=== PATIENT | female | born 1940 | race Caucasian/White ===

== ENCOUNTER 2020-12-03 17:47 | Inpatient (IN) | payer OTHER ==
--- NOTE | 2020-12-03 18:30 | RAD REPORT ---
EXAM DESCRIPTION: RAD - Chest Single View - 12/03/2020 6:24 pm CLINICAL HISTORY: CONGESTION COMPARISON: Chest Single View dated 07/27/2016 FINDINGS: Lines: None. Lungs: New poorly defined peripheral opacities in the peripheral aspect of the right lung. The left l aaron is clear. Pleural: No significant pleural effusions or pneumothorax. Cardiac: The heart size is within normal limits. Bones: No acute fractures. Other: IMPRESSION: New peripheral ill-defined opacities in the right lung could reflect pneumonia. The left lung is clear. Suggest radiographic follow-up to ensure resolution.
[2020-12-03 18:38] LABS: Absolute Lymphocytes (CBC) 2.6 K/uL (0.7-4.9); Basophils % 0.9 % (0-1.3); Hematocrit 41.6 % (36.0-45.0); Lymphocytes % 23.8 % (15.3-44.8); MPV 7.6 fL (7.6-11.3); RBC Red Blood Cell Count 4.76 M/uL (3.86-4.86)
[2020-12-03 18:40] LABS: Protime INR 1.39
[2020-12-03] MEDS ORDERED: NA CHLORIDE 0.9% 1,000 ML ONE (18:44)
[2020-12-03] MEDS ORDERED: METHYLPREDNISOLONE 125 MG INJ ONE (18:44)
[2020-12-03 19:02] LABS: ALT/SGPT 50 U/L (12-78); AST/SGOT 20 U/L (15-37); Albumin 3.4 g/dL (3.4-5.0); Alkaline Phosphatase 90 U/L (45-117); BUN Blood Urea Nitrogen 19 mg/dL (7-18); Bicarbonate 25 mmol/L (21-32); Bilirubin Direct 0.2 mg/dL (0-0.2); Bilirubin Total 0.7 mg/dL (0.2-1.0); Glucose Level 169 mg/dL (74-106); Magnesium 2.6 mg/dL (1.8-2.4); NT PRO-BNP 240 pg/mL (<450); Potassium 3.8 mmol/L (3.5-5.1); Protein, Total 7.8 g/dL (6.4-8.2); Sodium Level 141 mmol/L (136-145); Troponin (Emerg Dept Use Only) < 0.02 ng/mL (0.0-0.045)
[2020-12-03] MEDS ORDERED: Levofloxacin 750mg IV 750 MG/150 ML BAG IV ONE (19:10)
--- NOTE | 2020-12-03 20:07 | EDPHYS ---
Physician Documentation [facility] Name: Cricket Rodriguez Age: 80 yrs Sex: Female : 1940 Arrival Date: 12/03/2020 Time: 17:48 Bed 2 Private MD: Kitty Emanuel C; Trip Arreola S ED Physician Leonel Joel HPI: 12/03 18:14 This 80 yrs old Female presents to ER via Wheelchair with complaints of afib, ma2 covid+. 18:14 The patient presents with a history of irregular heart beat. Onset: The ma2 symptoms/episode began/occurred gradually, 3 day(s) ago. Associated signs and symptoms: Pertinent negatives: fever, nausea, syncope, unusual stressors. Severity of symptoms: At their worst the symptoms were moderate in the emergency department the symptoms are unchanged. The patient has experienced similar episodes in the past. Patient has hypothyroidism, A. fib, and has been having Covid for the last 3 weeks, she has been having diarrhea, vomiting, been dehydrated, although her respiratory symptoms and cough and fever has resolved. Patient has been having palpitation and heart racing for 3 days, she has been feeling generalized weakness and dehydrated. No chest pain, no lower extremity swelling. She took her aspirin Xarelto and atenolol today.. Historical: - Allergies: 17:56 Codeine; tw2 - Home Meds: 17:56 Xarelto Oral [Active]; Tramadol Oral [Active]; levothyroxine oral [Active]; Atenolol tw2 Oral [Active]; - PMHx: 17:56 Atrial Fib; Hypothyroidism; neuropathy; tw2 - Immunization history:: Client reports having NOT received the Covid vaccine. - Social history:: Smoking status: Patient denies any tobacco usage or history of. - Family history:: not pertinent. ROS: 18:14 Constitutional: Negative for fever, chills, and weight loss. ma2 18:14 All other systems are negative. Exam: 18:14 Constitutional: This is a well developed, well nourished patient who is awake, alert, ma2 and in no acute distress. Head/Face: Normocephalic, atraumatic. Eyes: Pupils equal round and reactive to light, extra-ocular motions intact. Lids and lashes normal. Conjunctiva and sclera are non-icteric and not injected. Cornea within normal limits. Periorbital areas with no swelling, redness, or edema. ENT: Nares patent. No nasal discharge, no septal abnormalities noted. Tympanic membranes are normal and external auditory canals are clear. Oropharynx with no redness, swelling, or masses, exudates, or evidence of obstruction, uvula midline. Mucous membranes moist. Neck: Trachea midline, no thyromegaly or masses palpated, and no cervical lymphadenopathy. Supple, full range of motion without nuchal rigidity, or vertebral point tenderness. No Meningismus. Chest/axilla: Normal chest wall appearance and motion. Nontender with no deformity. No lesions are appreciated. Cardiovascular: Tachycardia, rate is 110, beats per minute, blood pressure is on the lower normal side. Rhythm is irregularly irregular with a normal S1 and S2. No gallops, murmurs, or rubs. Normal PMI, no JVD. No pulse deficits. Respiratory: Lungs have equal breath sounds bilaterally, clear to auscultation and percussion. No rales, rhonchi or wheezes noted. No increased work of breathing, no retractions or nasal flaring. Abdomen/GI: Soft, non-tender, with normal bowel sounds. No distension or tympany. No guarding or rebound. No evidence of tenderness throughout. Skin: Warm, dry with normal turgor. Normal color with no rashes, no lesions, and no evidence of cellulitis. MS/ Extremity: Pulses equal, no cyanosis. Neurovascular intact. Full, normal range of motion. Neuro: Awake and alert, GCS 15, oriented to person, place, time, and situation. Cranial nerves II-XII grossly intact. Motor strength 5/5 in all extremities. Sensory grossly intact. Cerebellar exam normal. Normal gait. 20:46 ECG was reviewed by the Attending Physician. pallavi 20:47 ECG was reviewed by the Attending Physician. [facility] Vital Signs: 17:53 BP 108 / 80; Pulse 104; Resp 17; Temp 97.9(TE); Pulse Ox 97% on R/A; Weight 51.71 kg tw2 (R); Height 5 ft. 2 in. (157.48 cm); Pain 0/10; 18:42 BP 109 / 62; Pulse 131; Resp 22; Pulse Ox 99% on R/A; oh 17:53 Body Mass Index 20.85 (51.71 kg, 157.48 cm) tw2 NIH Stroke Scale Scores: 18:37 NIHSS Score: 0 oh MDM: 18:05 Patient medically screened. [facility] 18:14 Differential diagnosis: arrythmia, dehydration, stress disorder, Patient has A. fib ma2 with RVR, rate is about 110, patient is dehydrated clinically and has not been drinking water over the last few days. We will give her fluid, symptoms been going on for 3 days, no urgency for rate control at this time since her rate is 110 anyway, will get cardiac work-up continue to monitor. 18:53 Data reviewed: vital signs, nurses notes. ED course: Patient has a pneumonia on chest ak2 x-ray, I ordered Levaquin, she is pending cardiac work-up, heart rate is 130, however since this been going on for few days we will hydrate first before doing any rate control.. 19:22 Patient medically screened. [facility] 12/03 18:13 Order name: Basic Metabolic Panel; Complete Time: 20:04 [facility] 12/03 18:13 Order name: CBC with Diff; Complete Time: 18:38 [facility] 12/03 18:13 Order name: LFT's; Complete Time: 20:04 [facility] 12/03 18:13 Order name: Magnesium; Complete Time: 20:04 [facility] 12/03 18:13 Order name: NT PRO-BNP; Complete Time: 20:04 [facility] 12/03 18:13 Order name: PT-INR; Complete Time: 18:50 [facility] 12/03 18:13 Order name: Troponin (emerg Dept Use Only); Complete Time: 20:04 [facility] 12/03 18:14 Order name: T4,Total; Complete Time: 20:04 [facility] 12/03 18:14 Order name: TSH; Complete Time: 20:04 [facility] 12/03 19:46 Order name: T4 Free; Complete Time: 20:04 [facility] 12/03 20:09 Order name: Urine Dipstick-Ancillary; Complete Time: 20:19 [facility] 12/03 20:15 Order name: COVID-19 : Document "Date of Symptom Onset" if Symptomatic. em 12/03 20:15 Order name: CORONAVIRUS [facility] 12/04 00:27 Order name: SARS-COV-2 RT PCR [facility] 12/03 18:13 Order name: XRAY Chest (1 view); Complete Time: 18:38 [facility] 12/03 18:13 Order name: EKG; Complete Time: 18:14 [facility] 12/03 18:13 Order name: Cardiac monitoring; Complete Time: 18:31 [facility] 12/03 18:13 Order name: EKG - Nurse/Tech; Complete Time: 18:31 [facility] 12/03 18:13 Order name: IV Saline Lock; Complete Time: 18:31 [facility] 12/03 18:13 Order name: Labs collected and sent; Complete Time: 18:31 [facility] 12/03 18:13 Order name: O2 Per Protocol; Complete Time: 18:31 [facility] 12/03 20:12 Order name: CONS Physician Consult [facility] 12/03 20:39 Order name: EKG; Complete Time: 20:39 [facility] 12/03 18:13 Order name: O2 Sat Monitoring; Complete Time: 18:31 [facility] 12/03 18:13 Order name: Urine Dipstick-Ancillary (obtain specimen); Complete Time: 20:09 [facility] 12/03 20:39 Order name: EKG - Nurse/Tech; Complete Time: 21:22 pallavi EC:46 Rate is 139 beats/min. Rhythm is irregularly irregular. QRS [place] is Normal. NV interval pallavi is normal. QRS interval is normal. QT interval is normal. No Q waves. T waves are Normal. No ST changes noted. Clinical impression: Atrial Fibrillation. Interpreted by me. Reviewed by me. 20:47 Rate is 112 beats/min. Rhythm is irregularly irregular. QRS [place] is Normal. NV interval pallavi is normal. QRS interval is normal. QT interval is normal. No Q waves. T waves are Normal. No ST changes noted. Clinical impression: Atrial Fibrillation and No evidence of ischemia. Interpreted by me. Reviewed by me. Administered Medications: 18:31 Drug: NS 0.9% 1000 ml Route: IV; Rate: 1 bolus; Site: left antecubital; ld1 18:31 Drug: SOLU-Medrol (methylPrednisoLONE) 125 mg Route: IVP; Site: left antecubital; ld1 18:53 Drug: LevaQUIN (levofloxacin) 750 mg Volume: 150 ml; Route: IVPB; Infused Over: 90 oh mins; Site: left antecubital; 20:43 Drug: Lopressor (metoprolol TARTRATE)) 25 mg Route: PO; cw2 20:43 Drug: Lopressor (metoprolol) 2.5 mg Route: IVP; Site: right antecubital; cw2 20:44 Drug: Lopressor (metoprolol) 2.5 mg Route: IVP; Site: right antecubital; cw2 20:45 Drug: Lopressor (metoprolol) 2.5 mg Route: IVP; Site: right antecubital; cw2 Disposition Summary: 12/03/20 20:07 Hospitalization Ordered Hospitalization Status: Inpatient Admission pallavi Provider: Kitty Emanuel cha Location: Telemetry/MedSurg (Inpatient) pallavi Condition: Fair pallavi Problem: new pallavi Symptoms: have improved pallavi Bed/Room Type: Standard pallavi Room Assignment: 412(12/04/20 00:30) tl1 Diagnosis - Other pneumonia, unspecified organism - right peripherial pallavi - Fever, unspecified pallavi - Paroxysmal atrial fibrillation pallavi - Dehydration pallavi - UTI/ Urinary tract infection, site not specified pallavi Forms: - Medication Reconciliation Form pallavi - SBAR form pallavi NIH Stroke Scale - NIH Stroke Score Date: 12/03/2020 Time: 18:37 Total Score = 0 1a. Level of Consciousness (LOC) - 0(Alert) 1b. Level of Consciousness (LOC) (Month \\T\\ Age) - 0(Both) 1c. LOC Commands (Open \\T\\ Closes Eyes/Education Paraprofessional) - 0(Both) 2. Best Gaze (Lateral Gaze Paresis) - 0(Normal) 3. Visual Field Loss - 0(No visual loss) 4. Facial Palsy - 0(Normal) 5a. Left Arm: Motor (10-second hold) - 0(No drift) 5b. Right Arm: Motor (10-second hold) - 0(No drift) 6a. Left Leg: Motor (5-second hold - always test supine) - 0(No drift) 6b. Right Leg: Motor (5-second hold - always test supine) - 0(No drift) 7. Limb Ataxia (finger/nose \\T\\ heel/dugan - test with eyes open) - 0(Absent) 8. Sensory Loss (pinprick arms/legs/face) - 0(Normal) 9. Best Language: Aphasia (description/naming/reading) - 0(No aphasia) 10. Dysarthria (speech clarity - read or repeat words) - 0(Normal) 11. Extinction and Inattention (visual/tactile/auditory/spatial/personal) - 0(No abnormality) Initials: oh Signatures: Dispatcher [employer] Leonel Doe MD MD cha Lasagna, Tonya RN RN tl1 Ann Marie Roman RN RN tw2 Erik Arellano MD MD ma2 Tasha Bruce RN RN ld1 Avery Orozco RN RN 2 Monty Fuller RN RN oh Corrections: (The following items were deleted from the chart) 12/04 00:30 12/03 20:07 pallavi teran
--- NOTE | 2020-12-03 20:07 | ER ---
Nurse's Notes [facility] Name: Cricket Rodriguez Age: 80 yrs Sex: Female : 1940 Arrival Date: 12/03/2020 Time: 17:48 Bed 2 Private MD: Kitty Emanuel C; Trip Arreola S Diagnosis: Other pneumonia, unspecified organism-right peripherial;Fever, unspecified;Paroxysmal atrial fibrillation;Dehydration;UTI/ Urinary tract infection, site not specified Presentation: 12/03 17:53 Chief complaint: Patient states: my heart is racing up a storm. it started a couple of tw2 hours ago. and i tried to lay still. i took my medicine. Coronavirus screen: Client presents with at least one sign or symptom that may indicate coronavirus-19. Standard/surgical mask placed on the client. Provider contacted for isolation considerations. Client reports previous positive COVID test result. 1 week ago tested positive, originally tested positive 1 month ago. Ebola Screen: Patient denies travel to an Ebola-affected area in the 21 days before illness onset. Initial Sepsis Screen: Does the patient meet any 2 criteria? HR > 90 bpm. Does the patient have a suspected source of infection? No. Patient's initial sepsis screen is negative. Risk Assessment: Do you want to hurt yourself or someone else? Patient reports no desire to harm self or others. Onset of symptoms was December 03, 2020. 17:53 Method Of Arrival: Wheelchair tw2 17:53 Acuity: TYLER 2 tw2 Triage Assessment: 17:57 General: Appears in no apparent distress. slender, well groomed, Behavior is tw2 cooperative, anxious. Pain: Denies pain. Historical: - Allergies: 17:56 Codeine; tw2 - Home Meds: 17:56 Xarelto Oral [Active]; Tramadol Oral [Active]; levothyroxine oral [Active]; Atenolol tw2 Oral [Active]; - PMHx: 17:56 Atrial Fib; Hypothyroidism; neuropathy; tw2 - Immunization history:: Client reports having NOT received the Covid vaccine. - Social history:: Smoking status: Patient denies any tobacco usage or history of. - Family history:: not pertinent. Screenin:37 Abuse screen: Denies threats or abuse. Nutritional screening: No deficits noted. oh Tuberculosis screening: No symptoms or risk factors identified. Fall Risk None identified. Assessment: 18:34 General: Appears in no apparent distress. Behavior is calm, cooperative, appropriate oh for age, Reports palpitation. Pain: Denies pain. Neuro: No deficits noted. Cardiovascular: Reports palpitations, Rhythm is atrial fibrillation. Respiratory: No deficits noted. GI: No deficits noted. : No deficits noted. EENT: No deficits noted. Derm: No deficits noted. Musculoskeletal: No deficits noted. Vital Signs: 17:53 BP 108 / 80; Pulse 104; Resp 17; Temp 97.9(TE); Pulse Ox 97% on R/A; Weight 51.71 kg tw2 (R); Height 5 ft. 2 in. (157.48 cm); Pain 0/10; 18:42 BP 109 / 62; Pulse 131; Resp 22; Pulse Ox 99% on R/A; oh 17:53 Body Mass Index 20.85 (51.71 kg, 157.48 cm) tw2 NIH Stroke Scale Scores: 18:37 NIHSS Score: 0 oh ED Course: 17:48 Patient arrived in ED. as 17:48 Trip Arreola MD is Private Physician. as 17:48 Kitty Emanuel MD is Private Physician. as 17:56 Triage completed. tw2 17:56 Arm band placed on. tw2 18:02 EKG completed in triage. Results shown to MD. tw2 18:05 Erik Arellano MD is Attending Physician. ma2 18:11 Placed in gown. Bed in low position. school lunch monitor on. Pulse ox on. NIBP on. provider tw2 at bedside at this time. Notified VITALY Horta. 18:24 XRAY Chest (1 view) In Process Unspecified. EDMS 18:31 Inserted saline lock: 20 gauge in left antecubital area, using aseptic technique. Blood ld1 collected. 18:34 Monty Fuller RN is Primary Nurse. oh 19:13 Attending Physician role handed off by Erik Arellano MD pallavi 19:13 Leonel Joel MD is Attending Physician. pallavi 20:05 Kitty Emanuel MD is Hospitalizing Provider. pallavi Administered Medications: 18:31 Drug: NS 0.9% 1000 ml Route: IV; Rate: 1 bolus; Site: left antecubital; ld1 18:31 Drug: SOLU-Medrol (methylPrednisoLONE) 125 mg Route: IVP; Site: left antecubital; ld1 18:53 Drug: LevaQUIN (levofloxacin) 750 mg Volume: 150 ml; Route: IVPB; Infused Over: 90 oh mins; Site: left antecubital; 20:43 Drug: Lopressor (metoprolol TARTRATE)) 25 mg Route: PO; cw2 20:43 Drug: Lopressor (metoprolol) 2.5 mg Route: IVP; Site: right antecubital; cw2 20:44 Drug: Lopressor (metoprolol) 2.5 mg Route: IVP; Site: right antecubital; cw2 20:45 Drug: Lopressor (metoprolol) 2.5 mg Route: IVP; Site: right antecubital; cw2 Outcome: 20:07 Decision to Hospitalize by Provider. [facility] 12/04 01:11 Patient left the ED. ch4 NIH Stroke Scale - NIH Stroke Score Date: 12/03/2020 Time: 18:37 Total Score = 0 1a. Level of Consciousness (LOC) - 0(Alert) 1b. Level of Consciousness (LOC) (Month \T\ Age) - 0(Both) 1c. LOC Commands (Open \T\ Closes Eyes/Copy Editor) - 0(Both) 2. Best Gaze (Lateral Gaze Paresis) - 0(Normal) 3. Visual Field Loss - 0(No visual loss) 4. Facial Palsy - 0(Normal) 5a. Left Arm: Motor (10-second hold) - 0(No drift) 5b. Right Arm: Motor (10-second hold) - 0(No drift) 6a. Left Leg: Motor (5-second hold - always test supine) - 0(No drift) 6b. Right Leg: Motor (5-second hold - always test supine) - 0(No drift) 7. Limb Ataxia (finger/nose \T\ heel/dugan - test with eyes open) - 0(Absent) 8. Sensory Loss (pinprick arms/legs/face) - 0(Normal) 9. Best Language: Aphasia (description/naming/reading) - 0(No aphasia) 10. Dysarthria (speech clarity - read or repeat words) - 0(Normal) 11. Extinction and Inattention (visual/tactile/auditory/spatial/personal) - 0(No abnormality) Initials: oh Signatures: Dispatcher [employer] Leonel Doe MD MD cha Martinez, Amelia as Wise, Tara RN RN tw2 Erik Arellano MD MD ma2 Tasha Bruce RN RN ld1 Alem Lange RN RN ch4 Avery Orozco RN RN cw2 Monty Fuller RN RN oh
[2020-12-03 20:09] LABS: Urine Blood Trace-intact (Negative); Urine Glucose Negative (Negative); Urine Protein 1+ (Negative); Urine Specific Gravity 1.025 (1.005-1.030)
[2020-12-03] MEDS ORDERED: METOPROLOL TARTRATE 5 MG/5 ML INJ IV ONE ×2 (20:42→21:12)
[2020-12-03] MEDS ORDERED: METOPROLOL TAR 25 MG TAB ONE (20:42)
[2020-12-03] MEDS: Levofloxacin500mg IV 500 MG/100 ML BAG IV SCH (21:00)
[2020-12-03] MEDS: METOPROLOL TAR 50 MG TAB PO SCH (21:14)
[2020-12-03] MEDS ORDERED: ACETAMINOPHEN 325 MG TABLET PO PRN (21:14)
[2020-12-03] MEDS: FAMOTIDINE 20 MG/2 ML VIAL IV SCH (21:14)
[2020-12-03] MEDS ORDERED: ONDANSETRON 4 MG/2 ML VIAL IV PRN (21:14)
[2020-12-03] MEDS ORDERED: ALBUTEROL 2.5 MG/3 ML NEB SOL NEB PRN (21:14)
[2020-12-03] MEDS ORDERED: IPRATROPIUM BROM 0.5MG/2.5ML NEB PRN (21:14)
[2020-12-03 21:27] VITALS: BMI 20.8
[2020-12-03] MEDS ORDERED: FAMOTIDINE 20 MG/2 ML VIAL IV ONE (23:07)
[2020-12-04 03:58] LABS: Absolute Lymphocytes (CBC) 0.9 K/uL (0.7-4.9); Basophils % 0.4 % (0-1.3); Lymphocytes % 16.1 % (15.3-44.8); RBC Red Blood Cell Count 4.29 M/uL (3.86-4.86)
[2020-12-04 04:08] LABS: BUN Blood Urea Nitrogen 14 mg/dL (7-18); Bicarbonate 22 mmol/L (21-32); Glucose Level 224 mg/dL (74-106); NT PRO-BNP 1534 pg/mL (<450); Potassium 4.5 mmol/L (3.5-5.1); Sodium Level 143 mmol/L (136-145)
[2020-12-04] MEDS ORDERED: GLUCAGON 1 MG/VIAL IM PRN (06:22)
[2020-12-04] MEDS ORDERED: D50W 25 GM/50 ML SYRINGE IV PRN (06:22)
[2020-12-04] MEDS: INSULIN -REGULAR HUMAN 50 UNIT/0.5 ML ML SQ SCH ×3 (07:30→21:00)
[2020-12-04] MEDS: METOPROLOL TAR 50 MG TAB PO SCH (07:59)
[2020-12-04] MEDS: FAMOTIDINE 20 MG/2 ML VIAL IV SCH ×2 (08:00→20:19)
[2020-12-04] MEDS: ESCITALOPRAM 20 MG TAB PO SCH (09:07)
[2020-12-04] MEDS: atenoloL 25 MG TAB PO SCH (09:08)
[2020-12-04] MEDS: LEVOTHYROXINE SOD 0.05 MG TABLET PO SCH (09:08)
[2020-12-04] MEDS: TRAMADOL HCL 50 MG TAB PO PRN ×2 (09:15→20:20)
--- NOTE | 2020-12-04 14:06 | ECHO ---
HEIGHT: 5 ft 2 in WEIGHT: 114 lb 0.017 oz DATE OF STUDY: 12/04/[address]: Vaughn Emanuel MD 2-DIMENSIONAL: YES M.MODE: YES DOPPLER: YES COLOR FLOW: YES TDS: NO PORTABLE: NO DEFINITY: NO BUBBLE STUDY: NO DIAGNOSIS: ATRIAL FIBRILLATION CARDIAC HISTORY: CATHERIZATION: NO SURGERY: NO PROSTHETIC VALVE: NO PACEMAKER: NO MEASUREMENTS (cm) DIASTOLIC (NORMALS) SYSTOLIC (NORMALS) IVSd 1.1 (0.6-1.2) LA Diam 2.7 (1.9-4.0) LVEF 55-60% LVIDd 3.8 (3.5-5.7) LVIDs 2.3 (2.0-3.5) %FS 38% LVPWd 1.1 (0.6-1.2) Ao Diam 2.8 (2.0-3.7) 2 DIMENSIONAL ASSESSMENT: RIGHT ATRIUM: NORMAL LEFT ATRIUM: NORMAL RIGHT VENTRICLE: NORMAL LEFT VENTRICLE: NORMAL TRICUSPID VALVE: MITRAL VALVE: PULMONIC VALVE: AORTIC VALVE: PERICARDIAL EFFUSION: NONE AORTIC ROOT: NORMAL LEFT VENTRICULAR WALL MOTION: NORMAL DOPPLER/COLOR FLOW: SEE BELOW COMMENTS: NORMAL LEFT VENTRICULAR EJECTION FRACTION 55-60% WITH NORMAL WALL MOTION. MILD TRICUSPID, MITRAL, AORTIC AND PULMONARY REGURGITATION. TECHNOLOGIST: Breezy FORREST
[2020-12-04] MEDS ORDERED: RIVAROXABAN 10 MG TABLET PO SCH (17:00)
--- NOTE | 2020-12-04 17:55 | CON ---
Date of Consultation: 12/04/2020 Reason For Consultation: Atrial fibrillation with rapid ventricular response. History Of Present Illness: This is a 80-year-old female, admitted with COVID pneumonia. Only past medical history is atrial fibrillation for which she is on atenolol and anticoagulation with Xarelto. She was doing well and stable on that. She was admitted to the hospital for the pneumonia, started on IV antibiotics, and she had an episode of rapid AFib. Today, she is back in sinus rhythm and no complaints. Past Medical History: AFib. Medications: Refer to reconciliation sheet for detailed list. Allergies: CODEINE. Family History: No premature coronary artery disease or cancer. Social History: She does not smoke or drink. Does not use any drugs. Review of Systems: All systems reviewed and they were negative except as mentioned in the HPI. Physical Examination: Vital Signs: Temperature is 98.2, pulse 73, breathing at 18, blood pressure 126/70, saturating 94% o n room air. General: Pleasant elderly female, in no apparent distress. Head and Neck: Pupils are equal, reactive to light. Intact eye movements. No JVD. No cervical lym phadenopathy. Neck: Supple. Thyroid is not enlarged. Lungs: Clear to auscultation bilaterally. No rhonchi, rales, or crackles. No accessory muscle use. Heart: Regular rate and rhythm. No extra sounds. Abdomen: Soft, nontender. Bowel sounds positive. No organomegaly. No masses or hernia. No rigidi ty or rebound. Extremities: No edema, clubbing, or cyanosis. Intact pulses. Skin: No rash noted. Neurologic: Alert, awake, oriented x3. No acute focal deficits appreciated. Investigations: Troponins have been negative. Creatinine is 0.56. Assessment And Recommendations: Atrial fibrillation with rapid ventricular response. Now, she conve rted in sinus rhythm. Probably, the episode was due to the COVID pneumonia. Continue with atenolol and Xarelto, and I will sign off on this case and I will be happy to follow her up as an outpatient. Thank you for the consult. /PATRIZIA Voice ID: [id number] Report ID: [id number]
[2020-12-04] MEDS: Levofloxacin500mg IV 500 MG/100 ML BAG IV SCH (20:19)
[2020-12-04] MEDS ORDERED: ROSUVASTATIN 10 MG TAB PO SCH (21:00)
--- NOTE | 2020-12-05 06:57 | HP ---
Date of Admission: 12/03/2020 Chief Complaint: Palpitation. History: This is a 80-year-old female patient who started to have COVID-19 illness related symptoms 11/16/2020 and the patient had tele visit with me on 11/19/2020. At that time, she reported that she was having fever for 3 days with temperature as high as 104 on the day when I talked to her. She wa s having some headache, body aches, cough, congestion in her chest and nose and sinuses, was coughing up some yellowish-colored mucus. She denied any shortness of breath. She was advised to go [facility] and she did go to [facility] where she was tested positive for COVID a nd she was sent home with some antibiotics, steroids, and ivermectin. She completed those medication s and started to improve from her COVID-19 related symptoms and now all of a sudden she started to quintanilla ve heart racing feeling and she came into emergency room with this complaint and after she was evalua natalia she was admitted to the hospital with atrial fibrillation with rapid ventricular rate. Her COVID -19 test done in emergency room was positive. Review of Systems: Cardiovascular: As mentioned above. All other systems reviewed and negative. Allergies: TO CODEINE CAUSING ITCHING. Medications: She takes Xarelto 20 mg daily, atenolol 25 mg daily, alprazolam 0.25 mg at bedtime as n eeded, escitalopram 5 mg daily, levothyroxine 50 mcg, rosuvastatin 5 mg at bedtime, tramadol 50 mg sh e takes 3-4 times a day as needed for pain. Past Medical History: Significant for peripheral neuropathy, hypothyroidism, impaired fasting glucos e, paroxysmal atrial fibrillation, hyperlipidemia, depression, and hyperkalemia. Past Surgical History: Tonsillectomy, adenoidectomy, exploratory laparotomy, partial hysterectomy, b ack surgery. Family History: Father , had Alzheimer disease. Mother , had coronary artery disease[facility] Social History: Negative for smoking and alcohol use. Physical Examination: VITAL SIGNS: Temperature 97, pulse 94, respiratory rate 18, blood pressure 131/84, oxygen saturation 97%, height 5 feet 2 inches, weight 114 pounds. General: Awake, alert, oriented, not in distress. HEENT: Head atraumatic, normocephalic. Conjunctivae nonerythematous. Sclerae white. Mouth, no thr ush or edema noted. Ears/Nose, no mass, lesion, discharge noted. Neck: Supple. No JVD, lymph nodes, bruit, thyromegaly noted. Lungs: Bilateral good equal air entry. Clear to auscultation. No rhonchi. No rales. Heart: Normal heart sounds, no murmur or gallop. Abdomen: Soft, bowel sounds normal. No guarding, rigidity, tenderness, mass, hepatosplenomegaly, dis tention, or bruit noted. Extremities: No leg edema. No calf tenderness. Skin: No rash, ulcer, cellulitis. Lymphatics: No lymph node enlargement in neck, supraclavicular, infraclavicular region. Neuro: No focal neurological deficit. Chest: Unremarkable. External Genitalia: Deferred. Rectal: Deferred. Labs: Yesterday white count 10.9, hemoglobin 14.5, platelets 531. Today, white count 5.8, hemoglobi n 12.8, platelets 411. INR 1.39. Sodium 141, potassium 3.8, chloride 107, bicarb 25, BUN 19, creati nine 0.72, glucose 169. Liver function tests unremarkable. Troponin less than 0.02. TSH 5.95. Tod ay, sodium 143, potassium 4.5, chloride 114, bicarb 22, BUN 14, creatinine 0.56, glucose 220. Urinal ysis 1+ leukocyte esterase, 1+ protein. COVID-19 test positive. Chest x-ray shows right lung infilt rate. Left lung is clear. Impression: 1.COVID-19 infection. 2.COVID-19 pneumonia. 3.Atrial fibrillation with rapid ventricular rate. 4.Hypothyroidism. 5.Impaired fasting glucose. 6.Hyperlipidemia. 7.Peripheral neuropathy. 8.Depression. Plan: Admit patient to hospital for further evaluation and management of this problem. The patient is appropriate for inpatient and is expected to spend 2 midnights in hospital. We will go ahead and continue her anticoagulation therapy which is Xarelto. We will increase dose of atenolol from 25 mg once a day to twice a day. Continue home medications per order. Consult Cardiology. Echo with Dopp ler will be done today per order. I will see her tomorrow for followup. After I saw her this lore rodriguez, the patient did convert to sinus rhythm. The patient does not need any supplemental oxygen for CO VID-19 pneumonia and besides fatigue, she really does not have any other ongoing symptoms from her CO VID-19 illness at this point. We will go ahead and continue steroid per order and I will see her clint orrow for followup. Plan of treatment discussed with her. JOE/PATRIZIA Voice ID: [id number]
[2020-12-05] MEDS: INSULIN -REGULAR HUMAN 50 UNIT/0.5 ML ML SQ SCH (07:30)
[2020-12-05] MEDS: FAMOTIDINE 20 MG/2 ML VIAL IV SCH (07:45)
[2020-12-05] MEDS: atenoloL 25 MG TAB PO SCH (07:45)
[2020-12-05] MEDS: ESCITALOPRAM 20 MG TAB PO SCH (07:45)
[2020-12-05] MEDS: LEVOTHYROXINE SOD 0.05 MG TABLET PO SCH (07:46)
[2020-12-05 08:35] VITALS: O2SAT 94
[2020-12-05 09:11] VITALS: BP 141/65; TEMP 97.2
--- NOTE | 2020-12-06 03:52 | DS ---
Date of Discharge: 12/05/2020 Disposition: Discharge to go home. Physical Examination: HEENT: Unremarkable. Lungs: Clear to auscultation. Cardiac: Heart sounds normal. Abdomen: Soft, bowel sounds normal. No guarding, rigidity, tenderness, distention. Extremities: No leg edema. Laboratory Data: Hemoglobin A1c 5.5, CRP 3.68. Sodium 143, potassium 4.5, chloride 104, bicarb 22, BUN 14, creatinine 0.56, glucose 224. Echocardiogram from yesterday shows normal ejection fraction 5 5% to 60%, mild tricuspid aortic and pulmonary regurgitation. Discharge Medications And Instructions: 1.Continue all prior home medication except change atenolol 25 mg, take 1 tablet by mouth 2 times a day. 2.Take Levaquin 500 mg p.o. daily for 1 week. 3.Follow up at my office next week on 12/10/2020 or 12/11/2020 for a tele visit. Final Diagnoses: 1.COVID-19 infection. 2.COVID-19 pneumonia. 3.Atrial fibrillation with rapid ventricular rate, paroxysmal, resolved to sinus rhythm. 4.Urinary tract infection. 5.Impaired fasting glucose. 6.Hypertension. 7.Hyperlipidemia. Hospital Course: This is a 80-year-old pleasant female patient, admitted to the hospital with loud p alpitation feeling. Please see dictated H and P for more information. The patient evaluated in the ER. She was admitted to the hospital. She was seen in consultation by cut off saw operator pipe blanks and echocardiogr am was done, which came back unremarkable with normal ejection fraction. The patient normally takes atenolol 25 mg daily at home, we increased the dose to 25 mg twice a day. She takes Xarelto 20 mg da becka at home and we continued her Xarelto along with other home medications. Cardiology consultation was obtained and the patient converted to sinus rhythm yesterday and remained in sinus rhythm after t hat. She is maintaining normal oxygen saturation on room air. Levaquin was started and her culture result is pending. Besides feeling somewhat tired, she does not have any other symptoms from COVID. No fever. No shortness of breath. Overall, her condition has improved and she was discharged to go home in stable condition with above-mentioned medications and instructions. JOE/MODL Voice ID: [id number] Report ID: [id number]
== END 2020-12-05 12:05 | disposition home or self-care (01) | DRG 177 ==
LOC: ER 17:47 → ERHOLD 20:09 → 4TH 12-04 00:47
PROVIDERS: ADMIT Internal Medicine; ATTEND Internal Medicine
DX: U07.1 COVID-19 (principal); J12.82 Pneumonia due to coronavirus disease 2019; N39.0 Urinary tract infection, site not specified; E03.9 Hypothyroidism, unspecified; R73.01 Impaired fasting glucose; I10 Essential (primary) hypertension; E78.5 Hyperlipidemia, unspecified; I48.0 Paroxysmal atrial fibrillation; G62.9 Polyneuropathy, unspecified; F32.9 Major depressive disorder, single episode, unspecified; Z79.01 Long term (current) use of anticoagulants
CPT/HCPCS: 36415; 71045; 80048; 80076; 81003; 82947; 83036; 83735; 83880; 84436; 84439; 84443; 84484; 85025; 85610; 86140; 93005; 93306; 94760; 99284; J2930; J7030; U0003

== ENCOUNTER 2022-03-30 06:37 | Day surgery (SDC) | payer OTHER ==
--- NOTE | 2022-03-24 16:29 | RAD REPORT ---
EXAM DESCRIPTION: RAD - Chest Pa And Lat (2 Views) - 03/24/2022 4:19 pm CLINICAL HISTORY: Pre op pending eswl COMPARISON: Abdomen 1 View (KUB) dated 01/20/2022; Chest Single View dated 12/03/2020; Chest Single Vi ew dated 07/27/2016 FINDINGS: Lines: None. Lungs: No evidence of edema or pneumonia. Pleural: No significant pleural effusions or pneumothorax. Cardiac: The heart size is within normal limits. Mediastinum: Within normal limits. Bones: No acute fractures. Other: None IMPRESSION: No acute cardiopulmonary disease.
[2022-03-24 16:33] LABS: Absolute Lymphocytes (CBC) 2.5 K/uL (0.7-4.9); Hematocrit 36.2 % (36.0-45.0); Lymphocytes % 38.1 % (15.3-44.8); MCV 90.2 fL (80-100); Protime INR 1.03; RBC Red Blood Cell Count 4.02 M/uL (3.86-4.86)
[2022-03-24 16:46] LABS: Potassium 3.8 mmol/L (3.5-5.1)
--- NOTE | 2022-03-25 14:23 | EKG ---
Test Date: 2022-03-24 Test Time: 15:56:21 Functional Tester Typewriters: WESTON MEASUREMENT RESULTS: Intervals: Rate: 67 ND: 188 QRSD: 84 QT: 408 QTc: 431 [place]: P: 76 ND: 188 QRS: -23 T: 72 INTERPRETIVE STATEMENTS: Normal sinus rhythm Normal ECG Compared to ECG 12/03/2020 18:01:44 Atrial fibrillation no longer present Ventricular premature complex(es) no longer present Left ventricular hypertrophy no longer present ST (T wave) deviation no longer present Electronically Signed On 03-25-22 14:21:22 TASSEL CLIPPER by Jaime Faust
[2022-03-30] MEDS: Ringers Lactate 1,000 ML IV ONE ×2 (06:45→07:20)
[2022-03-30] MEDS ORDERED: CEFAZOLIN SODIUM 1 GM/VIAL ONE (06:56)
[2022-03-30] MEDS ORDERED: propofoL 200 MG/20 ML VIAL IV ONE (07:26)
[2022-03-30] MEDS ORDERED: FENTANYL CITR 100 MCG/2 ML ONE (07:26)
[2022-03-30] MEDS ORDERED: ONDANSETRON 4 MG/2 ML VIAL ONE (07:27)
[2022-03-30] MEDS ORDERED: MIDAZOLAM HCL 2 MG/2 ML INJ ONE (07:27)
[2022-03-30] MEDS ORDERED: LIDOCAINE 1% MPF 5 ML VIAL ONE (07:27)
[2022-03-30] MEDS ORDERED: TRAMADOL 37.5mg/APAP 325mg PER TAB PO ONE (07:59)
[2022-03-30] MEDS ORDERED: KETOROLAC 30 MG/ML INJ ONE (08:35)
[2022-03-30] MEDS ORDERED: TRAMADOL HCL 50 MG TAB ONE (10:11)
--- NOTE | 2022-03-30 10:23 | OP ---
Surgeon: ELMER LIPSCOMB Preoperative Diagnoses: 1.Right 11 mm nephrolithiasis. 2.Chronic long-term anticoagulation use for atrial fibrillation. Postoperative Diagnoses: 1.Right 11 mm nephrolithiasis. 2.Chronic long-term anticoagulation use for atrial fibrillation. Principal Procedure: Right extracorporeal shock wave lithotripsy. Indication For Procedure: Ms. Rodriguez presented to [facility] with recurrent gross hematuria and need for long-term anticoagulation with Xarelto. She underwent evaluation cystoscopically, which wa s negative for any sign of malignancy or stones intravesically, and upper tract imaging revealed the presence of an 11 mm lower pole right renal calculus. Since this was likely the source of the recurr ent gross hematuria, she was counseled on options for management of the stone and received preoperati ve medical clearance from her glass grinder, Dr. Arreola, to hold the Xarelto a sufficient number of d ays before and after to proceed with the ESWL. Procedure In Detail: The patient was consented in the preoperative holding area before being transfe rred to the operative suite where general anesthesia was induced. She was placed supine on the shock wave lithotripsy table with a water conduction medium between her flank and the therapeutic head. Fl uoroscopic imagery was used to target the stone in the AP as well as the dorsal ventral positioning, and shock wave lithotripsy was then begun. Slowly increasing the power of shocks delivered over the course of 500 shocks, the shock wave lithotripsy did progress. After 200 shocks, a 2-minute pause wa s given. Shock wave lithotripsy then continued over the course of 1000 shocks at 1 hertz before we i ncreased to 1.5 hertz because of evident dissolution of the stone. We then backed up the therapeutic head to resurvey the progress made, and since there was a residual nidus of the calculus that was ye t incompletely treated, the therapeutic head was replaced and we continued for an additional 500 shoc ks. After 2000 shocks, with a persistent nidus of stone remaining, we again decreased the rate of sh ock delivery to 1 hertz and continued to perform shockwave lithotripsy for a total of 3000 shocks del ivered. The patient tolerated the procedure well and there were no obvious anesthetic complications or other obvious issues. She was then awakened from general anesthesia, transferred to a stretcher, and then transferred to the recovery room in good condition. Complications: None. Discharge Disposition: She will continue to hold the Xarelto for at least the next 5 to 7 days. Willy parra provided instructions that she should observe her urine until it is free of blood/clear for at le ast 24 hours continuously. Once it is free of blood for 24 hours continuously, she should then hold the Xarelto for an additional 5 full days. Only at that point, will it be reasonable to resume the X arelto. If she would not be able to resume the Xarelto by Tuesday, on Tuesday, we will consider provid ing a prescription for Lovenox injection teaching. On Tuesday, we would teach her how to begin those Lovenox injections in order to allow at least 10 full days off the Xarelto before planning to resume it. As a result, we would provide at least 3 to 4 days of additional Lovenox injections before rachell ng her resume the Xarelto to ensure her urine remains clear before that anticoagulant is restarted. KASSY/MODL Voice ID: [id number] Report ID: [id number]
[2022-03-30 11:08] VITALS: BP 143/63; TEMP 97.5; O2SAT 98
== END 2022-03-30 17:00 | disposition home or self-care (01) ==
LOC: OR 06:37
PROVIDERS: ATTEND Urology
PROC: 0TF3XZZ Fragmentation in Right Kidney Pelvis, External Approach (ICD-10-PCS; principal; 2022-03-30 07:30)
DX: N20.0 Calculus of kidney (principal); I48.11 Longstanding persistent atrial fibrillation; Z79.01 Long term (current) use of anticoagulants
CPT/HCPCS: 93005; 87088; 85025; 87086; 80048; 36415; 85610; 71046; 50590 ×2; J2704; J2001; J3010; J7120; J2405; J0690; J2250

== ENCOUNTER 2023-04-25 08:30 | Day surgery (SDC) | payer OTHER ==
--- NOTE | 2023-04-22 15:34 | RAD REPORT ---
EXAM DESCRIPTION: RAD - Chest Pa And Lat (2 Views) - 04/22/2023 3:28 pm CLINICAL HISTORY: Pre op pending neck mass removal Chest pain. COMPARISON: Chest Pa And Lat (2 Views) dated 03/24/2022; Abdomen 1 View (KUB) dated 01/20/2022; Chest Single View dated 12/03/2020; Chest Single View dated 07/27/2016 FINDINGS: The lungs are clear. The heart is normal in size. No displaced fractures. IMPRESSION: No acute or concerning finding suspected.
[2023-04-22 16:21] LABS: Absolute Lymphocytes (CBC) 2.6 K/uL (0.7-4.9); Hematocrit 36.4 % (36.0-45.0); Lymphocytes % 38.1 % (15.3-44.8); MCV 89.6 fL (80-100); MPV 8.4 fL (7.6-11.3); Platelets 245 thou/uL (152-406); RBC Red Blood Cell Count 4.06 M/uL (3.86-4.86)
[2023-04-22 16:23] LABS: Protime INR 1.43
[2023-04-22 16:30] LABS: Potassium 4.1 mEq/L (3.5-5.1)
[2023-04-25] MEDS: Ringers Lactate 1,000 ML IV ONE (09:00)
[2023-04-25] MEDS ORDERED: LIDOCAINE 1% MPF 5 ML VIAL ONE (09:09)
[2023-04-25] MEDS ORDERED: propofoL 200 MG/20 ML VIAL IV ONE (09:09)
[2023-04-25] MEDS: CEFAZOLIN SODIUM 1 GM/VIAL ONE (09:20)
[2023-04-25] MEDS ORDERED: ONDANSETRON 4 MG/2 ML VIAL ONE (09:34)
[2023-04-25] MEDS ORDERED: KETOROLAC 30 MG/ML INJ ONE (09:34)
[2023-04-25] MEDS ORDERED: dexAMETHasone 4 MG/ML VIAL ONE (09:34)
[2023-04-25] MEDS ORDERED: EPHEDRINE SULF 50 MG/ML VIAL ONE (09:42)
--- NOTE | 2023-04-25 09:58 | P.BOP ---
Preoperative diagnosis: right neck tender subQ mass Postoperative diagnosis: same Primary procedure: Excisional biopsy right neck tender subQ mass 3x3cm Exterminator: Yahaira Marsh (Jorge) Estimated blood loss: <10cc Specimen: mass Findings: mass Anesthesia: General Complications: None Transferred to: Recovery Room Condition: Good
[2023-04-25] MEDS: FENTANYL CITR 100 MCG/2 ML ONE ×2 (10:25→10:30)
[2023-04-25] MEDS: DIPHENHYDRAMINE 50 MG/ML VIAL ONE (11:00)
[2023-04-25 12:24] VITALS: BP 138/70; TEMP 96.7; O2SAT 100
--- NOTE | 2023-04-25 13:41 | EKG ---
Test Date: 2023-04-22 Test Time: 16:11:44 Community Arts Worker: WESTON MEASUREMENT RESULTS: Intervals: Rate: 66 ND: 198 QRSD: 84 QT: 418 QTc: 438 [place]: P: 79 ND: 198 QRS: 9 T: 68 INTERPRETIVE STATEMENTS: Normal sinus rhythm Normal ECG Compared to ECG 03/24/2022 15:56:21 No significant changes Electronically Signed On 04-25-23 13:34:15 ROLL OUT MANAGER by Jaime Faust
--- NOTE | 2023-04-25 18:12 | OP ---
Date of Procedure: 04/25/2023 Surgeon: Lit Hanson MD Pantry Chef: BOB Montemayor. Preoperative Diagnosis: Right neck tender enlarging subcutaneous mass. Postoperative Diagnosis: Right neck tender enlarging subcutaneous mass. Procedure: Excisional biopsy of right neck tender subcutaneous mass, 3 x 3 cm. Estimated Blood Loss: Less than 10 mL. Specimen: Mass. Finding: Mass. Anesthesia: General plus local. Indications: This is the case of an 83-year-old patient, comes to us with an enlarging mass. Given her pain and discomfort, she wants that excised. She is having it now and then. She has some draina ge coming from that area foul smelling. The benefits, alternatives, and risks of excisional biopsy f ully explained, which include, but not limited to infection, bleeding, damage to adjacent structures, anesthesia complication, recurrence, IL, even . She also understands this may not relieve symp toms. She might need more than one surgical intervention. Up to today, to mention that she has roni rgies to local anesthetic, specifically lidocaine 2 cc was given to her once by a dentist. The anest hesiologist discussed the case with the patient itself. Probably, it is not the lidocaine itself. N ow she mentioned she may have allergies to codeine with itchiness. We know of this. We will avoid b oth 2 of them. We are going to do this under general anesthesia since the areas of the neck create s ome pain and discomfort. The benefits, alternatives, and risks of excisional biopsy of neck mass kristi jaime fully explained to the patient which include, but not limited to infection, bleeding, damage to adjacent structures, anesthesia complication, IL, and even . She also understands this may not relieve the symptoms. She might need more than one surgical intervention. She understood and signed a consent. Procedure In Detail: The patient was brought to the operating room and placed in supine position. A nesthesia was done without complication. The right neck was previously marked by me and the patient in the holding room. The area was prepped and draped in sterile fashion. A time-out was called. A wedge incision was made in the skin all the way into the subcutaneous tissue. It does not penetrate the muscle, just sitting on top of that. The mass was completely excised. Area was irrigated. Hemo stasis was obtained and then we closed the area with a combination of 3-0 chromic and Steri-Strips on top. We did not inject local anesthetic due to the possibility of allergies and we encouraged her t o in the future just clarify this. She understood. The patient was sent to recovery in stable condi tion. MARIANA/PATRIZIA Voice ID: [id number] Report ID: [id number]
--- NOTE | 2023-04-25 18:15 | DS ---
Date of Discharge: 04/25/2023 Diagnosis: Right neck tender subcutaneous mass. Procedure: Excisional biopsy of right neck tender subcutaneous mass. Disposition: Home. Activity: As tolerated. No heavy lifting. Follow up in my office in 1 week. Call for appointment at [phone]. Keep area dry for 48 hours, then may shower. Keep Steri-Strips intact. MARIANA/PATRIZIA Voice ID: [id number] Report ID: [id number]
== END 2023-04-25 11:41 | disposition home or self-care (01) ==
LOC: OR 08:30
PROVIDERS: ATTEND Surgery
PROC: 0JB40ZZ Excision of Right Neck Subcutaneous Tissue and Fascia, Open Approach (ICD-10-PCS; principal; 2023-04-25 09:45)
DX: L72.0 Epidermal cyst (principal); I48.91 Unspecified atrial fibrillation
CPT/HCPCS: 93005; 85025; 80048; 36415; 85610; 88304; 85730; 71046; 11423; J2704; J1100; J1200; J2001; J3010 ×2; J2405; J7120; J0690